=== PATIENT | male | born 1990 ===

== ENCOUNTER 2025-01-11 18:49 | Emergency (ER) | payer SELFPAY | END 2025-01-11 21:29 | disposition home or self-care (01) | LOC: JP.ED 18:49 | DX: S20.212A Contusion of left front wall of thorax, initial encounter (principal); V16.0XXA Pedal cycle driver injured in collision with other nonmotor vehicle in nontraffic accident, initial encounter; Y93.55 Activity, bike riding | CPT/HCPCS: 99284 ==